=== PATIENT | male | born 1985 | race Caucasian/White ===

== ENCOUNTER 2020-07-19 19:10 | Emergency (ER) | payer SELFPAY ==
[~2020-07-19] VITALS: Ht 180.3 cm; Wt 86.3 kg
[2020-07-19 19:12] VITALS: BP 144/90
[2020-07-19] MEDS ORDERED: ONDANSETRON ODT 4 MG ONE (19:42)
[2020-07-19] MEDS ORDERED: ONDANSETRON ODT 4 MG PO ONE (20:00)
== END 2020-07-19 19:54 | disposition home or self-care (01) ==
LOC: ED 19:50
DX: R11.2 Nausea with vomiting, unspecified (principal)
CPT/HCPCS: 99283; Q0162